=== PATIENT | female | born 1980 | race American Indian/Alaskan Native ===

== ENCOUNTER 2022-02-11 07:05 | Emergency (ER) | payer SELFPAY ==
[2022-02-11] MEDS ORDERED: KETOROLAC 30 MG/1 ML INJ IV ONE (08:37)
[2022-02-11] MEDS ORDERED: dexAMETHasone 4 MG/ML VIAL IV ONE (08:37)
--- NOTE | 2022-02-11 08:47 | Emergency Department Report ---
HPI - General Chief Complaint: Abdominal Pain PUI?: No Time Seen by Provider: 02/11/22 08:19 - HPI HPI: 41-year-old female with history of self-reported history of hypertension, migraine headaches, brought in by EMS for evaluation of body aches, left lower back pain, fevers chills nausea and vomiting.. Patient reports at 11 PM she had a fever 101 last night for which she took acetaminophen. She reports she is currently also experiencing a migraine headache exacerbation. No sick contacts or travel history. Patient reports symptoms have been ongoing for the past 2 days. She states 3 days ago she took a home COVID test which was negative. She denies any falls or trauma to her left lower back. No fecal or urinary inco ntinence or retention. She denies UTI symptoms. Patient reports she had an ablation several years ago and therefore is not . She denies any active abdominal and/or pelvic pain. No abnormal vaginal bleeding or discharge. She reports a hx of endometrial ablation and states she is not . Pain currently 8 out of 10 ED Past Medical Hx - Past Medical History Previous Medical History?: Yes Additional medical history: kidney stones - Social History Smoking Status: Current Every Day Smoker ED Review of Systems ROS: Stated complaint: BACK/ABDOMINAL PAIN Other details as noted in HPI Comment: All other systems reviewed and negative Gastrointestinal: abdominal pain, nausea, vomiting Genitourinary: as per HPI, urgency Musculoskeletal: back pain Skin: denies: rash, lesions, change in color, change in hair/nails, pruritus Neurological: headache. denies: weakness, numbness, paresthesias, confusion, abnormal gait, vertigo, other Psychiatric: denies: anxiety, depression, auditory hallucinations, visual hallucinations, homicidal thoughts Hematological/Lymphatic: denies: easy bleeding, easy bruising, swollen glands Physical Exam - Physical Exam Vital Signs: Vital Signs 02/11/22 02/11/22 07:22 07:48 Temperature 98.9 F 98.1 F Pulse Rate 71 88 Respiratory 16 21 Rate Blood Pressure 137/82 Blood Pressure 134/94 137/82 [Left] O2 Sat by Pulse 100 100 Oximetry General: Gen: pt is well appearing, no acute distress HEENT: Normocephalic atraumatic pupils equally round and reactive to light extraocular muscles intact sclera anicteric Neck: Full range of motion, no midline spinal tenderness palpation, no JVD, no carotid bruits, no nuchal rigidity CVS: S1-S2 regular rate and rhythm with no gallops rubs or murmurs, chest wall nontender Pulmonary: Clear to auscultation bilaterally, no wheezes rales or rhonchi Abdomen: Soft nondistended nontender no guarding or rebound tenderness, no palp able deformities or step-offs, normal active bowel sounds, no hepatosplenomegaly, no pulsatile masses : Deferred Extremities: No cyanosis no clubbing no edema, intact distal peripheral pulses, Integumentary: Skin normal, no petechia no purpura no abscess no lacerations no evidence of trauma no evidence of infection Neuro: Patient is awake alert and oriented to person place time situation, mentating well, cranial nerves II through XII intact, no focal neurodeficits, sensation grossly tact Psych: Calm cooperative, mood affect normal ED Course Vital Signs 02/11/22 02/11/22 07:22 07:48 Temperature 98.9 F 98.1 F Pulse Rate 71 88 Respiratory 16 21 Rate Blood Pressure 137/82 Blood Pressure 134/94 137/82 [Left] O2 Sat by Pulse 100 100 Oximetry - Reevaluation(s) Reevaluation #1: 02/11/22 12:09: pt is comfortable and well appearing; nad ED Medical Decision Making - Lab Data Result diagrams: 02/11/22 09:06 02/11/22 09:06 - Radiology Data Radiology results: pending, report reviewed - Medical Decision Making 41-year-old female presents for evaluation of body aches, report of fever at home, left flank pain, and headache x2 days. Vital signs stable. Patient is afebrile here. Labs reviewed and they are grossly unremarkable. Patient was gi emelia Toradol as well as Solu-Medrol for pain management and the significantly improved her pain per her report. CT scan and pelvis performed and results reviewed. Due to pt's c/o reoccuring pain she was ordered for a morphine. Pt ordered for transvaginal ultrasound (TVUS). This latter diagnostic imaging was pending at the time of this provider's shift time completion. Due to change in provider shift time @15:00, pt signed out to Dr. Brent Perez for follow up of TVUS and final disposition. Critical care attestation.: If time is entered above; I have spent that time in minutes in the direct care of this critically ill patient, excluding procedure time. ED Disposition Clinical Impression: Back pain Disposition: 30 STILL A PATIENT Is pt being admited?: No Does the pt Need Aspirin: No Condition: Stable Instructions: Abdominal Pain (ED) Referrals: PRIMARY CARE, [Primary Care Provider] - 3-5 Days
[2022-02-11 09:55] LABS: Hematocrit 38.9 % (30.3-42.9); Hemoglobin 13.3 gm/dl (10.1-14.3); Mean Corpuscular HGB Conc 34 % (30-34); Mean Corpuscular Volume 87 fl (79-97); Platelet Count 155 K/mm3 (140-440); Red Blood Count 4.46 M/mm3 (3.65-5.03); Red Cell Distribution Width 13.1 % (13.2-15.2)
[2022-02-11 10:19] LABS: Alanine Aminotransferase 15 units/L (7-56); Albumin 3.5 g/dL (3.9-5); Blood Urea Nitrogen 7 mg/dL (7-17); Hemolysis Index 3
[2022-02-11 10:39] LABS: BUN/Creatinine Ratio 10
[2022-02-11 11:47] LABS: Total Cells Counted 100
[2022-02-11 11:49] LABS: Large Platelets Few; Platelet Estimate Consistent w Auto; Target Cells Few
[2022-02-11 12:29] LABS: Mucus,Urine 3+ /HPF
[2022-02-11 12:34] LABS: Bilirubin,Urine Negative (Negative); Blood,Urine Negative (Negative); Color,Urine Yellow (Yellow); Urobilinogen,Urine < 2.0 mg/dL (<2.0)
[2022-02-11 12:37] LABS: HCG Qualitative,Urine Negative (Negative)
[2022-02-11 12:43] VITALS: BP 123/86
[2022-02-11 12:52] LABS: Amphetamine Screen,Urine Negative; Benzodiazepines Screen,Urine Negative; Cocaine Screen,Urine Negative; Methadone Screen,Urine Negative; Opiate Screen,Urine Negative
[2022-02-11 13:29] LABS: Cannabinoid Screen,Urine Positive
--- NOTE | 2022-02-11 13:40 | Cat Scan Report ---
CT ABDOMEN AND PELVIS WITH INTRAVENOUS CONTRAST INDICATION / CLINICAL INFORMATION: L flank pain and hx of fever. TECHNIQUE: 100 cc Omnipaque [address] scans at this location are performed using CT d ose reduction for ALARA by means of automated exposure control. COMPARISON: None available. FINDINGS: ABDOMEN: The liver, spleen, gallbladder, bile ducts, pancreas, adrenal glands, kidneys and bowel demo nstrate no significant abnormality. No adenopathy is present. 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 There are minimal atherosclerotic calcifications involving th e distal abdominal aorta. The lung bases are clear. PELVIS: There is increased fluid in the endometrial cavity especially in the left horn which is signi ficantly dilated. There is a 2 cm simple appearing right ovarian cyst with mild free fluid in the rig ht adnexa and cul-de-sac. The left ovary is normal in appearance. A normal appendix is present and there is no evidence of diverticulitis. I do not identify a hernia. The distal ureters and urinary bladder are normal. There is unilateral spondylolysis at L5 on the lef t without spondylolisthesis. No acute osseous abnormality is seen. IMPRESSION: Increased fluid in the endometrial cavity, especially in the left horn which appears dila [place]. 2 cm right ovarian cyst with mild free fluid in the right adnexa and cul-de-sac. Transvaginal pe lvic ultrasound is recommended for further evaluation. Signer Name: Shivam Del Valle MD Signed: 02/11/2022 1:36 PM Workstation Name: [id number]
[2022-02-11] MEDS ORDERED: MORPHINE 4 MG/1 ML INJ IV ONE (14:21)
--- NOTE | 2022-02-11 15:59 | Ultrasound Report ---
ULTRASOUND TRANSVAGINAL INDICATION / CLINICAL INFORMATION: free fluid in endom cavity; eval for TOA. TECHNIQUE: Transvaginal. Duplex Color Doppler used: Yes. COMPARISON: CT abdomen pelvis with contrast performed earlier today FINDINGS: UTERUS: Present. - Appearance (if present): Borderline enlarged - Size in cm (if present): 9.2 x 5.4 x 5.0. - Endometrial Complex (if present): There is moderate to large complex appearing fluid within the end ometrial canal. This yielded contains moderate debris suggesting blood products or proteinaceous debr is. The endometrium measures 2.9 cm in width. There is no evidence for internal perfusion or obvious mass. - Mass lesions: None. - Additional findings: There are multiple small nabothian cysts in the cervix with the largest measur ing 7 mm. RIGHT ADNEXA: A 2.8 x 1.7 x 2.4 cm cyst is identified in the right ovary. Normal color Doppler blood flow. LEFT ADNEXA: No significant ovarian cyst or mass. Normal color Doppler blood flow. URINARY BLADDER: No significant abnormality. FREE FLUID: None. ADDITIONAL FINDINGS: No convincing tubo-ovarian abscess is appreciated. IMPRESSION: Complex fluid in the endometrial canal likely representing blood products or proteinaceous fluid. Th ere is no discrete endometrial mass. Right ovarian cyst as described, simple in appearance. No findings to suggest tubo-ovarian abscess. Signer Name: Jamie Garay Jr, MD Signed: 02/11/2022 3:55 PM Workstation Name: [id number]
== END 2022-02-11 17:48 | disposition still patient (30) ==
LOC: ED 07:05
DX: M54.50 Low back pain, unspecified (principal); F17.200 Nicotine dependence, unspecified, uncomplicated; Z79.899 Other long term (current) drug therapy
CPT/HCPCS: 36415; 74177; 76830; 80053; 80307; 81001; 81025; 85007; 85025; 96374; 96375; 99284; J1100; J1885; J2270; Q9967